=== PATIENT | female | born 1985 | race African-American/Black ===

== ENCOUNTER 2018-03-16 16:12 | Emergency (ER) | END 2018-03-16 18:18 | disposition left against medical advice (07) ==

== ENCOUNTER 2018-03-16 21:13 | Emergency (ER) | END 2018-03-17 01:08 | disposition home or self-care (01) ==

== ENCOUNTER → 2018-04-02 | Emergency (ER) | payer SELFPAY ==
[~2018-04-02] VITALS: Ht 157.5 cm; Wt 81.0 kg
[~2018-04-02] MED LIST: ACET500C5 PO
[2018-04-02 14:08] VITALS: BP 121/64; PULSE 67; RESP 20; Ht 157.5 cm; Wt 81.0 kg
--- NOTE | 2018-04-02 17:33 | ERD ---
ER Documentation Chief Complaint Chief Complaint Pt. here for dorothy removal on head HPI 33-year-old female, status post laceration repair of the forehead and the scalp 10 days ago, returns to the emergency department for stitches and dorothy removal. The patient denies any pain, no fever, no blurred vision, no distal weakness, numbness or tingling. ROS All systems reviewed and are negative except as per history of present illness. Medications Home Meds Active Scripts Acetaminophen* (Tylophen*) 500 Mg Capsule, 1 CAP PO Q6H PRN for PAIN AND OR ELEVATED TEMP, #20 CAP Prov:BETHANY WAYNE PA-C 03/17/18 Allergies Allergies: Coded Allergies: No Known Drug Allergies (Verified Allergy, Unknown, 03/16/18) PMhx/Soc Medical and Surgical Hx: pt denies Medical Hx History of Surgery: Yes (l ankle fx repair) Anesthesia Reaction: No Hx Neurological Disorder: No Hx Respiratory Disorders: No Hx Cardiac Disorders: No Hx Psychiatric Problems: No Hx Miscellaneous Medical Probl: No Hx Alcohol Use: No Hx Substance Use: No Hx Tobacco Use: No Smoking Status: Never smoker Physical Exam Vitals Vital Signs Date Temp Pulse Resp B/P (MAP) Pulse Ox O2 O2 Flow FiO2 Time Delivery Rate 04/02/18 98.1 67 20 121/64 100 14:08 (83) Physical Exam Const: No acute distress Head: Atraumatic Eyes: Normal Conjunctiva ENT: Normal External Ears, Nose and Mouth. Neck: Full range of motion. No meningismus. Resp: Clear to auscultation bilaterally Cardio: Regular rate and rhythm, no murmurs Abd: Soft, non tender, non distended. Normal bowel sounds Skin: 10 cm linear laceration compromising the frontal scalp in the frontal facial area, with stitches and dorothy in place. Laceration clean, dry and intact. Back: No midline or flank tenderness Ext: No cyanosis, or edema Neur: Awake and alert Psych: Normal Mood and Affect Procedures/MDM Status post laceration repair 10 days ago. Adequate pain control, no fever, no chills. The patient was evaluated for infection and neurovascular compromise. The wound was clean and irrigated with normal saline, scalp dorothy were removed without complications. Stitches in the forehead will be removed in 1 week to improve cosmesis, the skin in the forehead is is still healing and partially opened. Patient is stable, okay to discharge home. The patient was instructed to follow up with the primary care provider in the next 48h. If symptoms persist, worsen or new symptoms develop, then patient should return to the ED immediately. Instructions explained and given directly by me to the patient with a cknowledgment and demonstrated understanding. Disclaimer: Inadvertent spelling and grammatical errors are likely due to EHR/dictation software use and do not reflect on the overall quality of patient care. Also, please note that the electronic time recorded on this note does not necessarily reflect the actual time of the patient encounter. Departure Diagnosis: Primary Impression: Encounter for removal of sutures Additional Impression: Encounter for removal of dorothy Condition: Stable Patient Instructions: Suture Removal, No Complication (Child) Additional Instructions: Thank you very much for allowing us to participate in your care. Your health and safety is our top priority at [facility]. Call your primary care doctor TOMORROW for an appointment during the next 2-4 days and bring all the information and medications prescribed. Have prescriptions filled and follow precisely the directions on the label. If the symptoms get worse and your provider is unavailable, return to the Emergency Department immediately. ARTURO GUERRERO MD Apr 02, 2018 17:33
== END | disposition home or self-care (01) ==
LOC: FTE 14:00
DX: Z48.02 Encounter for removal of sutures (principal)
CPT/HCPCS: 99281